=== PATIENT | female | born 1980 | race Caucasian/White ===

== ENCOUNTER 2019-04-24 23:34 | Emergency (ER) | payer SELFPAY ==
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
== END 2019-04-25 01:06 | disposition home or self-care (01) ==
LOC: ERS 23:34
DX: S39.012A Strain of muscle, fascia and tendon of lower back, initial encounter (principal); V89.2XXA Person injured in unspecified motor-vehicle accident, traffic, initial encounter
CPT/HCPCS: 72100